=== PATIENT | male | born 1935 | race Caucasian/White ===

== ENCOUNTER 2020-01-24 18:07 | Inpatient (IN) ==
[2020-01-24] MEDS ORDERED: CATAPRES PO ONE (18:38)
--- NOTE | 2020-01-24 18:46 | PROVIDER DOCUMENTATION ---
HPI-General Adult - General Chief Complaint: Altered Mental Status Stated Complaint: AMS Time Seen by Provider: 01/24/20 18:37 Source: patient Allergies/Adverse Reactions: Patient Allergies Allergy/AdvReac Type Severity Reaction Status Date / Time Sulfa (Sulfonamide Allergy RASH Verified 05/06/15 09:05 Antibiotics) Home Medications: Home Medication List Medication Instructions Recorded Confirmed Last Taken Type Potassium Chloride 40 meq PO TID 05/06/15 07/27/18 05/06/15 History Atenolol/Chlorthalidone 50 mg PO DAILY 01/24/20 01/24/20 Unknown History [Atenolol-Chlorthalidone 50-25] Clonazepam 2 mg PO QHS 01/24/20 01/24/20 Unknown History Levothyroxine Sodium 50 mcg PO QAM 01/24/20 01/24/20 Unknown History Pravastatin Sodium 20 mg PO DAILY 01/24/20 01/24/20 Unknown History - History of Present Illness -Gen Adult Nature of Presenting Problems: Patient is a 84 year old white male with history of HTN, anxiety,kidney disease,generalized headache, and thyroid disease who presents complaining of decreased mental function,decreased intake, generalized weakness, and generalized headache after falling 2 days ago at home. Patient is currently alert to person and place and follows commands. Arrives by POV with girlfriend. Followed by Dr. Stone. Repeat BP after triage was 118/81. Reports falling in bathroom 2 days ago without LOC. Also complains of rash in groin area. Location of Pain/Injury: reports: none Review of Systems - Adult - REVIEW OF SYSTEMS - ADULT Constitutional: reports: chills. denies: fever Eyes: reports: no symptoms reported Ears, Nose, Mouth & Throat: reports: no symptoms reported Cardiovascular: denies: chest pain Respiratory: denies: shortness of breath Gastrointestinal: denies: abdominal pain, nausea, vomiting Genitourinary: reports: other (rash over groin) Integumentary: reports: rash Neurological: reports: headache/migraines Psychiatric: reports: see HPI Endocrine: reports: no symptoms reported Hematologic/Lymphatic: reports: no symptoms reported Allergic/Immunologic: reports: no symptoms reported All Other Systems: Reviewed and Negative Past History - Adult - PAST MEDICAL HISTORY-ADULT Review of Records: reports: Old Records Reviewed, Nursing Assessment Review, Medications Reviewed, Social history reviewed & non-contributory. Major Childhood Illnesses: reports: denies history Cardiovascular: reports: HTN, hyperlipidemia Respiratory: reports: COPD Gastrointestinal: reports: denies history Musculoskeletal: reports: denies history Neurological: reports: denies history Psychiatric: reports: denies history Endocrine/Immune: reports: denies history. denies: Leukemia - PRIOR SURGERIES/PROCEDURES Surgical/Procedure History: reports: cholecystectomy, back/neck (back) - IMMUNIZATION STATUS Childhood Immunizations: UTD Flu Vaccine: UTD - FAMILY HISTORY Family History: reviewed, not pertinent - SOCIAL HISTORY Smoking: denies Substance Use: denies Alcohol Use Frequency: never Living Situation: family Physical Exam-General - PHYSICAL EXAM-ADULT Initial Vital Signs Reviewed: Yes - CONSTITUTIONAL General Appearance: alert, no apparent distress - EYES Eyes: other (clear) - HEAD, EARS, NOSE, MOUTH & THROAT HENMT: other (semimoist membranes) - NECK Neck: supple - RESPIRATORY Respiratory: lungs clear - CARDIOVASCULAR Cardiovascular: regular rate, rhythm - GASTROINTESTINAL (ABDOMEN) Abdominal Exam: non tender, soft - LYMPHATIC Lymphatic: no adenopathy - MUSCULOSKELETAL Back Exam: no CVA tenderness Extremity: non-tender - SKIN Integumentary: normal color, normal turgor, warm/dry - NEUROLOGIC Neurologic: other (nonfocal) - PSYCHIATRIC Psych/Mental Status: anxious Progress - PLAN OF CARE/RESULTS Progress/Plan/Lab Results: Vital Signs - 8 hr 01/24/20 18:27 Temperature 98.5 F Pulse Rate 77 Respiratory Rate 18 Blood Pressure 216/127 O2 Sat by Pulse Oximetry 95 Orders Category Date Time Status CBC WITH ELECTRONIC DIFF [HEME] Stat Lab 01/24/20 18:37 Ordered CMP [COMPREHENSIVE METABOLIC PANEL] [CHEM] Stat Lab 01/24/20 18:37 Uncollected URINALYSIS W/POSS RFLX CULT [URINALYSIS] Stat Lab 01/24/20 18:41 Uncollected Clonidine [Catapres] Med 01/24/20 18:38 Once 0.2 mg PO NOW ONE Result Diagrams: 01/24/20 19:41 01/24/20 19:41 - CT/MRI 1 CT Study: Head CT Results: NAD - CONSULTS/PCP/HOSPITALIST Notification #1 *Consult/PCP/Hospitalist*: Dr. Stone, hospitalist Time Discussed: 21:15 Consult Disposition: Admit Departure - Departure Date of Disposition Decision: 01/24/20 Time of Disposition Decision: 21:58 DIAGNOSIS: Generalized weakness Acute on chronic renal failure Qualifiers: Acute renal failure type: unspecified Chronic kidney disease stage: unspecified stage Qualified Code(s): N17.9 - Acute kidney failure, unspecified; N18.9 - Chronic kidney disease, unspecified Altered mental state Qualifiers: Altered mental status type: unspecified Qualified Code(s): R41.82 - Altered mental status, unspecified Disposition: ADMITTED INPATIENT 09 Certified Medical Emergency: Emergent Condition: Stable Referrals and Follow-Ups: Bk Stone MD [Primary Care Provider] - - Critical Care Note This patient required my direct & personal management of CC.: No Attestation - Physician/ TIERNEY Attestation Patient care was provided by Advanced Practice Provider:: No The physician spent face to face time with patient:: Yes Advanced Practice Provider documentation review:: Supervising physician onsite and consulted in the evaluation and care of this patient. The physician did have a face to face encounter with the patient.
[2020-01-24 20:00] LABS: BASO# 0.03 X1000 (0.0-0.2); BASO% 0.3 % (0.0-0.8); EOS# 0.13 X1000 (0.0-0.7); EOS% 1.3 % (0.0-10.0); HEMOGLOBIN 14.6 g/dL (14.0-18.0); IMM GRAN# 0.06 X1000 (0.0-0.04); IMM GRAN% 0.6 % (0.0-0.5); LYMPH% 19.6 % (20.5-51.1); MCH 25.2 PG (27-31); MCHC 31.1 g/dL (33-37); MONO# 1.56 X1000 (0.11-0.59); MONO% 15.3 % (1.7-9.3); MPV 11.1 FL (7.4-10.4); NEUT# 6.44 X1000 (1.4-6.5); NEUT% 62.9 % (42.2-75.2); PLT 224 X1000 (130-400); RDW 18.7 % (11.5-14.5); WBC 10.22 X1000 (4.8-10.8)
[2020-01-24 20:18] LABS: INR 1.06; PROTIME 14.3 Seconds (11.0-16.0)
[2020-01-24 20:19] LABS: PTT 29.2 Seconds (22.3-41.8)
[2020-01-24 20:20] LABS: ALBUMIN 3.7 g/dL (3.5-5.0); CALCIUM 9.4 mg/dL (8.8-10.2); POTASSIUM 4.1 mmol/L (3.5-5.1); TOTAL BILIRUBIN 0.4 mg/dL (0.20-1.00); TOTAL PROTEIN 8.1 g/dL (6.3-8.3)
[2020-01-24 20:25] LABS: URINE SOURCE CLEAN CATCH
[2020-01-24 20:28] LABS: BILIRUBIN URINE NEGATIVE (NEGATIVE); BLOOD URINE SMALL (NEGATIVE); COLOR YELLOW; GLUCOSE URINE NEGATIVE (NEGATIVE); KETONE URINE NEGATIVE (NEGATIVE); LEUKOCYTES URINE SMALL (NEGATIVE); NITRITE URINE NEGATIVE (NEGATIVE); PH URINE 5.5; PROTEIN URINE TRACE mg/dL (NEGATIVE); SP GRAVITY URINE 1.016; TURBIDITY URINE CLEAR (CLEAR); UROBILINOGEN URINE NORMAL (NORMAL)
[2020-01-24 20:29] LABS: UR EPITHELIAL CELLS <10 /HPF (<10); URINE BACTERIA NEGATIVE /HPF; URINE RBC <10 /HPF (<10); URINE WBC <10 /HPF (<10)
[2020-01-24] MEDS ORDERED: NS 1,000 ML IV ONE ×2 (20:40→21:51)
--- NOTE | 2020-01-24 20:46 | Diag Imaging Result Doc PS360 ---
EXAM: CT HEAD W/O CONTRAST 01/24/2020 HISTORY: AMS TECHNIQUE: This exam was performed using automated exposure control, adjustment of mA or kV according to patient size, and/or use of iterative reconstruction technique. COMMENT: There is some encephalomalacia in the left occipital lobe. There is moderate generalized cerebral atrophy. There are no previous studies available for comparison. There is some asymmetry of extra-axial fluid on the left greater than the right. This has a CT density of less than 10 Hounsfield units which is consistent with CSF. The possibility of a chronic subdural hematoma or effusion cannot be excluded however. There is also a degree of atrophy in the cerebellum with similar extra-axial fluid on both sides. IMPRESSION: Prominent extra-axial fluid collections which are likely due to ex vacuo change and atrophy of the cerebrum and cerebellum. Comparison with previous CT or MRI examinations is recommended if available. Electronically signed by Noe Galvan 01/24/2020 8:43 PM
--- NOTE | 2020-01-25 01:00 | EKG Report ---
Test Performed on : 01/24/2020 9:22:02 PM Test Reason : ams Blood Pressure : / mmHG Vent. Rate : 070 BPM Atrial Rate : 070 BPM P-R Int : 172 ms QRS Dur : 092 ms QT Int : 404 ms P-R-T Axes : 026 013 106 degrees QTc Int : 436 ms Normal sinus rhythm. Possible Inferior infarct (cited on or before 06-MAY-2015) ST & T wave abnormality, consider lateral ischemia Abnormal ECG When compared with ECG of 06-MAY-2015 09:07, T wave inversion no longer evident in Inferior leads Nonspecific T wave abnormality has replaced inverted T waves in Anterior leads T wave inversion now evident in Lateral leads Unconfirmed Result
[2020-01-25] MEDS: TYLENOL PO PRN ×2 (02:24→16:43)
[2020-01-25 07:17] LABS: HEMATOCRIT 41.8 % (42.0-52.0); HEMOGLOBIN 12.9 g/dL (14.0-18.0); MCH 25.7 PG (27-31); MCHC 30.9 g/dL (33-37); MCV 83.3 FL (81-99); MPV 10.5 FL (7.4-10.4); RBC 5.02 XMIL (4.7-6.1); RDW 18.5 % (11.5-14.5); WBC 7.78 X1000 (4.8-10.8)
[2020-01-25 07:54] LABS: ALBUMIN 2.9 g/dL (3.5-5.0); CALCIUM 8.5 mg/dL (8.8-10.2); CREATININE 2.6 mg/dL (0.7-1.2); POTASSIUM 3.7 mmol/L (3.5-5.1); TOTAL BILIRUBIN 0.4 mg/dL (0.20-1.00); TOTAL PROTEIN 6.6 g/dL (6.3-8.3)
[2020-01-25] MEDS: SYNTHROID PO SCH (09:12)
[2020-01-25] MEDS ORDERED: NS 1,000 ML IV SCH (16:00)
[2020-01-25] MEDS: MYCOSTATIN OINTMENT TOP SCH (16:43)
--- NOTE | 2020-01-25 18:18 | HISTORY AND PHYSICAL ---
CHIEF COMPLAINT: Altered mental status. HISTORY OF PRESENT ILLNESS: This is an 84-year-old gentleman with a prior history of gastroesophageal reflux disease, MDS, hypertension, hyperlipidemia, chronic kidney disease, and BPH. He presented to the ER via POV with his girlfriend. The patient stated that he has felt bad for about a month. He stated that he has just felt bad all over, that he has had some shortness of breath and burning on urination. The girlfriend told the ER physician that the patient had decreased mental function, decreased intake, generalized weakness, and generalized headache after falling 2 days ago at home. They both denied that he had any loss of consciousness after his fall. They denied any chest pain or palpitations, any fevers, or productive cough. PAST MEDICAL HISTORY: 1. MDS. 2. Hypertension. 3. Benign prostatic hypertrophy. 4. Chronic kidney disease. 5. Hypertension. 6. Hyperlipidemia. 7. Gastroesophageal reflux disease. PAST SURGICAL HISTORY: 1. Cholecystectomy. 2. Back surgery. SOCIAL HISTORY: Denies any alcohol, tobacco, or illicit drug use. FAMILY HISTORY: Positive for hypertension. ALLERGIES: Sulfa. HOME MEDICATIONS: A list will be obtained by the nursing staff and once verified, will review and restart as appropriate. REVIEW OF SYSTEMS: Discussed with the patient and girlfriend with pertinent positives stated in the HPI. He denied any syncope or dizziness, any chest pain or palpitations, a productive cough, any fevers, any nausea, vomiting, diarrhea, constipation, any black or bloody vomitus or stools, any hematuria. PHYSICAL EXAMINATION: GENERAL: This is an 84-year-old gentleman who is sitting up in the bed on the Medical/Surgical floor in no distress. VITAL SIGNS: Blood pressure 144/57, heart rate 65, respirations are 16, temperature is 97.6 degrees oral, with room air saturations 96% to 97%. EYES: Pupils are equal, round, react to light. EOMs are intact. Sclerae anicteric. HEAD: Normocephalic, atraumatic. ENT: Mucous membranes are moist. NECK: Supple with trachea midline. CARDIOVASCULAR: Regular rate and rhythm. S1 and S2 appreciated. He has no lower extremity edema. He denies any calf tenderness. Peripheral pulses are palpable x4 extremities. No murmur. PULMONARY: Breath sounds are clear with no increased work of breathing noted. Chest rises and falls symmetrically with respiration. Chest wall is nontender to palpation. GASTROINTESTINAL: Abdomen is soft, nontender, and nondistended with bowel sounds in all 4 quadrants. NEUROLOGIC: He is alert and oriented x3. LABS: WBC is 7.7 with hemoglobin 12.9, hematocrit 41.8, platelets of 180,000. Sodium 135, potassium 3.7, BUN 50, creatinine 2.6 with a glucose of 109. Urinalysis revealed a small amount of blood with less than 10 microscopic red blood cells, white blood cells, and epithelial cells. Blood cultures and urine culture are pending. CT of the head revealed prominent extra-axial fluid collections which are likely due to ex vacuo change and atrophy of the cerebrum and cerebellum. The possibility of chronic subdural hematoma or effusion cannot be excluded. Recommend comparison with previous CT or MRI exams is recommended if available. ASSESSMENT: 1. Generalized weakness. 2. Acute kidney injury overlying chronic kidney disease. 3. Altered mental status. 4. Hypertension. 5. Benign prostatic hypertrophy. 6. History of myelodysplastic syndrome, followed by Dr. Rose. PLAN: 1. The patient has been admitted to the Medical/Surgical floor 2. will identify his home medications and continue these as appropriate. 3. Check a CBC, CMP, magnesium, and TSH in the morning. 4. neuro checks q4h Further treatments pending hospital course. Dictated by GENEVIEVE Farley for Bk Stone MD cc: GENEVIEVE Farley MD [facility]
[2020-01-25] MEDS: KLONOPIN PO SCH (22:18)
--- NOTE | 2020-01-25 22:42 | HISTORY AND PHYSICAL ---
ADDENDUM: Patient was seen and examined by myself. Full note dictated and discussed with nurse practitioner. Patient presented to the hospital, 84-year-old male with hypertension and kidney disease. Creatinine is elevated at 3.0, BUN at 52. We are going to admit the patient to the hospital, IV fluids. We will follow his chronic kidney disease. cc: Bk Stone MD
[2020-01-26] MEDS: SYNTHROID PO SCH (06:10)
[2020-01-26 07:23] LABS: HEMATOCRIT 42.1 % (42.0-52.0); HEMOGLOBIN 13.2 g/dL (14.0-18.0); MCH 25.5 PG (27-31); MCHC 31.4 g/dL (33-37); MCV 81.3 FL (81-99); MPV 11.3 FL (7.4-10.4); RBC 5.18 XMIL (4.7-6.1); RDW 17.9 % (11.5-14.5); WBC 6.78 X1000 (4.8-10.8)
[2020-01-26 07:30] LABS: ALBUMIN 3.3 g/dL (3.5-5.0); CREATININE 2.4 mg/dL (0.7-1.2); MAGNESIUM 1.9 mg/dL (1.5-2.7); POTASSIUM 3.3 mmol/L (3.5-5.1); TOTAL BILIRUBIN 0.3 mg/dL (0.20-1.00)
[2020-01-26] MEDS: MYCOSTATIN OINTMENT TOP SCH ×3 (10:16→17:32)
[2020-01-26] MEDS: SOLU-MEDROL IV SCH ×2 (10:16→20:50)
[2020-01-26] MEDS: NS 1,000 ML IV SCH (13:37)
[2020-01-26] MEDS: KLONOPIN PO SCH (20:49)
[2020-01-26] MEDS ORDERED: ATIVAN PO SCH (21:00)
--- NOTE | 2020-01-26 21:25 | PROGRESS NOTE ---
DATE: 01/26/2020 SUBJECTIVE: Patient notes that he is feeling terrible. States he is having some back aches. Denies any fevers or chills. PHYSICAL EXAMINATION: Vital Signs: Temperature 97.8, pulse 71, respiratory rate 18, BP 156/68. General: Patient is awake, pleasant. He is in no distress. HEENT: Normocephalic. Neck: Supple. Cardiovascular: Regular rate. Chest: Clear. Abdomen: Soft. Extremities: Moves all extremities. ASSESSMENT/PLAN: 1. Cervical spine arthritis. 2. Generalized weakness. 3. Altered mental statu,s appears resolved. 4. Hypertension. 5. Acute kidney injury. Creatinine has continued to improve. Currently it is at 2.6 with a baseline creatinine of 1.1. We are going to continue IV fluids and will follow. We will add Solu-Medrol today for his back and neck pain. Hopefully can discharge home tomorrow. cc: Bk Stone MD
[2020-01-27] MEDS: TYLENOL PO PRN (05:28)
[2020-01-27] MEDS: SYNTHROID PO SCH ×2 (05:28→06:05)
[2020-01-27 08:09] LABS: HEMATOCRIT 43.7 % (42.0-52.0); HEMOGLOBIN 13.6 g/dL (14.0-18.0); MCH 25.1 PG (27-31); MCHC 31.1 g/dL (33-37); MCV 80.8 FL (81-99); MPV 10.9 FL (7.4-10.4); RBC 5.41 XMIL (4.7-6.1); RDW 17.8 % (11.5-14.5); WBC 10.38 X1000 (4.8-10.8)
[2020-01-27 08:19] LABS: ALBUMIN 3.4 g/dL (3.5-5.0); CALCIUM 9.2 mg/dL (8.8-10.2); CREATININE 2.1 mg/dL (0.7-1.2); POTASSIUM 3.2 mmol/L (3.5-5.1); TOTAL BILIRUBIN 0.2 mg/dL (0.20-1.00); TOTAL PROTEIN 7.3 g/dL (6.3-8.3)
[2020-01-27] MEDS ORDERED: KLOR-CON PO ONE (08:32)
[2020-01-27] MEDS ORDERED: FLU VACCINE IM ONE (10:40)
[2020-01-27] MEDS: MYCOSTATIN OINTMENT TOP SCH ×2 (11:35→13:16)
[2020-01-27 11:49] VITALS: BP 170/79
[2020-01-27] MEDS: NS 1,000 ML IV SCH (13:16)
--- NOTE | 2020-01-28 02:44 | DISCHARGE SUMMARY ---
ADMISSION DATE: 01/24/2020 DISCHARGE DATE: 01/27/2020 ADDENDUM: Patient seen and examined by myself. Full note dictated and discussed with nurse practitioner. On discharge, patient is awake, alert. He is still weak and fatigued. We actually would prefer him to go to rehab although he declined. We will discharge him home with home health. Creatinine is improved although not completely back to his baseline. It was 3.1 on admit with baseline 1.1. He was discharged with a creatinine at 2.2. He is drinking and eating much better. No other changes made on his chronic diet. Remained on the medications. He was taking no anti-inflammatories. He will follow up in the office in one to two weeks. cc: Bk Stone MD
== END 2020-01-27 14:15 | disposition home health service (06) | DRG 684 ==
LOC: P.ED 18:07 → P.MEDSURG 22:13
PROVIDERS: ATTEND Family Medicine